=== PATIENT | female | born 1985 | race Caucasian/White ===

== ENCOUNTER 2020-02-10 12:09 | Emergency (ER) | payer SELFPAY ==
[~2020-02-10] VITALS: Ht 160 cm; Wt 72.1 kg
[2020-02-10 12:13] VITALS: BP 128/70; Ht 160 cm; Wt 72.1 kg
== END 2020-02-10 13:19 | disposition home or self-care (01) ==
LOC: ED 12:09
DX: M75.31 Calcific tendinitis of right shoulder (principal)
CPT/HCPCS: J1885; Q0092